=== PATIENT | female | born 1965 | race Two or more races ===

== ENCOUNTER → 2020-07-15 | Outpatient (CLI) | payer OTHER ==
--- NOTE | 2020-07-15 14:25 | RAD ---
EXAM: Left knee, 2 views. HISTORY: Pain. COMPARISON: None. FINDINGS: 2 views of the left knee are obtained. There is no fracture, dislocation or subluxation. Th ere is no significant joint effusion. IMPRESSION: No acute osseous finding. Electronically signed by: Lisa Fletcher MD (07/15/2020 2:23 PM) [id number]
--- NOTE | 2020-07-15 14:26 | RAD ---
EXAM: Lumbar spine, 2 views. HISTORY: Pain. COMPARISON: None. FINDINGS: 2 views of the lumbar spine are obtained. There is no significant listhesis. There is degen erative endplate remodeling with disc space narrowing, osteophytosis and facet arthropathy mildly L5- S1 and L4-L5. IMPRESSION: 1. Degenerative change primarily at the lower lumbar levels. 2. No acute osseous finding. Electronically signed by: Lisa Fletcher MD (07/15/2020 2:24 PM) [id number]
== END ==
LOC: RAD 13:44
PROVIDERS: ATTEND Anesthesiology Pain Medicine
DX: Z02.71 Encounter for disability determination (principal); M47.816 Spondylosis without myelopathy or radiculopathy, lumbar region; M25.562 Pain in left knee
CPT/HCPCS: 72100; 73560